=== PATIENT | female | born 1980 | race Caucasian/White ===

== ENCOUNTER 2016-09-22 12:10 | Emergency (ER) | payer OTHER ==
[~2016-09-22 12:10] MED LIST: AL-MAG HYDROX-S30 ML PO; ALBUTEROL SULF8.5 GM; ALPRAZOLAM0.5 M2 PO; AMBIEN CR12.5 MG/BO; AMBIEN CR6.25 MG/BO PO; AROMASIN25 MG PO; ASTELIN137 MCG NS; ATIVAN0.5 MG PO; BACTROBAN15 GM TP; BENADRYL TOP; BENADRYL25 MG PO; BYSTOLIC5 MG PO; CELEXA20 MG; CHEMO; CIPROFLOXACIN PO; CLARINEX5 MG PO; COMPAZINE10 M PO; COMPAZINE10 M1 PO; DAPTOMYCIN IV; DARVOCET-N 1001 TAB PO; DULOXETINE HCL30 M1 PO; ENBREL50 MG/1 M1 SQ; FEMARA2.5 MG PO; FLAGYL250 MG PO; HERCEPTIN; HYDROXYCHLOROQ200 M2 PO; JUICE PLUS PO; KEPPRA500 M1 PO; LEVAQUIN750 MG PO; LEXAPRO10 MG PO; LUNESTA3 MG PO; NAPROXEN500 MG PO; NEURONTIN100 MG PO; NIASPAN500 MG PO; NUCYNTA100 MG PO; NUCYNTA50 M1 PO; NUCYNTA50 MG PO; PREDNISONE10 M1 PO; PRISTIQ100 MG PO; PROAIR PO; PROTONIX40 MG PO; ROZEREM8 MG PO; SULFASALAZINE500 M1 PO; TYLENOL PM EX-1 EACH PO; TYLENOL325 MG PO; VANCOMYCIN1.5 GM/250 IV; VIIBRYD40 MG PO; ZOLADEX; [UNRECOGNIZED DRUG - OTHER] PO; [UNRECOGNIZED DRUG - REMARK]
[2016-09-22 12:45] LABS: BASO % 0.1 % (0-2); EOS % 1.1 % (0-7); EOSINOPHIL ABSOLUTE COUNT 0.1 tho/cmm (0.0-0.7); HCT-HEMATOCRIT 40.7 % (34.0-49.0); HGB-HEMOGLOBIN 14.3 gm/dl (12.0-15.5); IMMATURE GRANULOCYTES ABSOLUTE 0.02 tho/cmm (0-0.03); IMMATURE GRANULOCYTES PERCENT 0.2 % (0-0.3); LYMPH % 16.6 % (20-45); LYMPH ABSOLUTE COUNT 1.4 tho/cmm (0.8-4.5); MCH (MEAN CORPUSCULAR HGB) 31.6 pg (28.0-32.0); MCHC MEAN CORPUSCULAR HGB CONC 35.1 % (32.0-36.0); MCV (MEAN CELL VOLUME) 89.8 fl (82.0-96.0); MEAN PLATELET VOLUME 10.3 cmc (9.4-12.4); MONO % 6.7 % (0-12); MONOCYTE ABSOLUTE COUNT 0.6 tho/cmm (0.0-1.2); NEUTROPHIL ABSOLUTE COUNT 6.4 tho/cmm (1.6-8.0); NEUTROPHIL-AUTOMATED 6.4 tho/cmm (1.6-8.0); NEUTROPHILS % 75.3 % (40-80); PLATELET COUNT 234 tho/cmm (150-450); RED BLOOD COUNT 4.53 mil/cmm (4.00-5.20); RED CELL DISTRIBUTION WIDTH 13.4 % (12.4-16.4); WHITE BLOOD COUNT 8.5 tho/cmm (4.0-10.0)
[2016-09-22 13:05] LABS: ANION GAP 13 mmol/L (0-20); BLOOD UREA NITROGEN 8 mg/dl (6-24); CALCIUM 8.2 mg/dl (8.5-10.5); CARBON DIOXIDE-VENOUS 22 mmol/L (22-32); CHLORIDE 108 mmol/l (96-110); CREATININE 0.87 mg/dl (0.50-1.10); GLUCOSE 99 mg/dL (70-110); POTASSIUM 3.5 mmol/L (3.7-5.1); SODIUM 139 mmol/L (135-145); eGFR VALUE FOR BLACK >90 mL/Min
[2016-09-22] MEDS ORDERED: VITAMIN C1000 M1 PO (13:33)
[2016-09-22] MEDS ORDERED: AMBIEN5 M1 PO (13:34)
[2016-09-22] MEDS ORDERED: ACTEMRA162 MG/0.1 SC (13:35)
[2016-09-22] MEDS ORDERED: BRINTELLIX10 M1 PO (13:37)
[2016-09-22] MEDS ORDERED: FOLIC ACID1 M1 PO (13:37)
[2016-09-22] MEDS ORDERED: LAMICTAL25 M2 PO (13:37)
[2016-09-22] MEDS ORDERED: TOPAMAX100 M2 PO (13:39)
[2016-09-22] MEDS ORDERED: TRAZODONE HCL100 M1 PO (13:39)
[2016-09-22] MEDS ORDERED: ULTRAM50 M1 PO (14:51)
== END 2016-09-22 15:06 ==
LOC: EDMED 12:10
PROVIDERS: Nurse Practitioner Family
DX: R07.89 Other chest pain (principal); M25.511 Pain in right shoulder; M79.89 Other specified soft tissue disorders; J44.9 Chronic obstructive pulmonary disease, unspecified; F32.9 Major depressive disorder, single episode, unspecified; Z90.49 Acquired absence of other specified parts of digestive tract
CPT/HCPCS: J1885; J2270